=== PATIENT | female | born 1995 | race Two or more races ===

== ENCOUNTER 2023-04-01 16:40 | Emergency (ER) | payer BC, OTHER ==
[~2023-04-01] VITALS: Ht 154.9 cm; Wt 72.1 kg
[2023-04-01] MEDS ORDERED: KETOROLAC TROMETHAMINE 15 MG/ML VIAL ONE (17:33)
[2023-04-01] MEDS: KETOROLAC TROMETHAMINE INJ 30 MG/ML VIAL IM ONE (17:40)
[2023-04-01] MEDS ORDERED: IBUP-1955 PO (18:15)
[2023-04-01] MEDS ORDERED: CYCL5TAB PO (18:15)
[2023-04-01 18:28] VITALS: BP 121/71; TEMP 98.6; O2SAT 100
== END 2023-04-01 18:28 | disposition home or self-care (01) ==
LOC: ER 16:41
DX: M54.50 Low back pain, unspecified (principal); R51.9 Headache, unspecified; Y08.89XA Assault by other specified means, initial encounter; Y93.89 Activity, other specified; Y92.89 Other specified places as the place of occurrence of the external cause; Y99.8 Other external cause status
CPT/HCPCS: 99283; 96372; 72100; J1885